=== PATIENT | male | born 1955 | race Caucasian/White ===

== ENCOUNTER → 2021-01-23 | Outpatient (CLI) | payer MEDICARE ==
[~2021-01-23] MED LIST: ADDERALL 30 MG30 MG PO; ALPRAZOLAM0.5 MG PO; ARICEPT5 MG PO; ATORVASTATIN CA20 MG PO; CLOPIDOGREL75 MG PO; DILANTIN100 MG PO; DIVALPROEX SOD500 MG PO; GABAPENTIN600 MG PO; HYDROCODONE PO; ISOSORBIDE MONO30 MG PO; LEVOCETIRIZINE D5 MG PO; LEVOTHYROXINE75 MCG PO; MELOXICAM7.5 MG PO; NAPROXEN250 MG PO; OMEPRAZOLE40 MG PO; QUETIAPINE FUMA25 MG PO; RISPERDAL1 MG PO; TESTOSTERONE5 GM IM
[2021-01-23 15:45] LABS: BASOPHILS # (AUTO) 0.1 (0.0-0.1); EOSINOPHILS # (AUTO) 0.3 (0.0-0.4); EOSINOPHILS % 2.4 % (0.0-6.0); HEMATOCRIT 42.8 % (38.2-49.6); HEMOGLOBIN 14.4 g/dL (14.0-18.0); LYMPHOCYTES # (AUTO) 1.4 (1.0-3.2); LYMPHOCYTES % 12.9 % (18.0-39.1); MEAN CORPUSCULAR HEMOGLOBIN 31.1 pg (28-32); MEAN CORPUSCULAR HGB CONC 33.6 g/dL (31-35); MEAN CORPUSCULAR VOLUME 92.4 fL (81-99); MONOCYTES # (AUTO) 0.7 (0.2-0.8); MONOCYTES % 6.6 % (4.4-11.3); NEUTROPHILS # (AUTO) 8.1 (2.1-6.9); NEUTROPHILS % 76.6 % (38.7-80.0); PLATELET COUNT 245 x10e3/uL (140-360); RED BLOOD COUNT 4.63 x10e6/uL (4.3-5.7); RED CELL DISTRIBUTION WIDTH 13.7 % (11.7-14.4)
[2021-01-23 16:05] LABS: ANION GAP 14.6 mmol/L (8-16); BLOOD UREA NITROGEN 25 mg/dL (7-26); BUN/CREATININE RATIO 24 (6-25); CALCIUM 8.7 mg/dL (8.4-10.2); CARBON DIOXIDE 22 mmol/L (22-29); CHLORIDE 108 mmol/L (98-107); CREATININE, SERUM 1.03 mg/dL (0.72-1.25); EST GLOMERULAR FILTRATION RATE > 60 ML/MIN (60-); GLUCOSE 86 mg/dL (74-118); POTASSIUM 4.6 mmol/L (3.5-5.1); SODIUM 140 mmol/L (136-145)
[2021-01-23 16:06] LABS: INR 0.89; PROTHROMBIN TIME 12.6 seconds (11.9-14.5)
[2021-01-23 16:07] LABS: PARTIAL THROMBOPLASTIN TIME 30.8 seconds (23.8-35.5)
== END ==
LOC: DX 14:06 → EDSTATUS 01-25 10:30
PROVIDERS: ATTEND Neurological Surgery
DX: Z01.812 Encounter for preprocedural laboratory examination (principal); Z01.818 Encounter for other preprocedural examination; Z20.822 Contact with and (suspected) exposure to COVID-19; M47.812 Spondylosis without myelopathy or radiculopathy, cervical region
CPT/HCPCS: 36415; 71046; 80048; 85025; 85610; 85730; 86850; 86900; 93005; U0002